=== PATIENT | male | born 1965 | race Caucasian/White ===

== ENCOUNTER → 2021-08-18 | Day surgery (SDC) | payer OTHER ==
[~2021-08-18] MED LIST: CARAFATE 1 GM TA1 G1 PO; DEXILANT60 MG PO; FENTANYL1 EAC1 TRANSDERM; FLOMAX0.4 MG PO; NARCAN4 MG NARES; OXYCODONE HCL E15 MG PO; POTASSIUM CHLO15 MEQ PO; PROTONIX40 M2 PO; REGLAN 10 MG TA10 MG PO; WELLBUTRIN XL300 MG PO; XANAX 0.5 MG0.5 MG PO
--- NOTE | ~2021-08-18 | PROC ---
[address] [address] PROCEDURE REPORT Name: OLEG GARCIA Room: [facility]#: [id number] Admission: 08/18/21 Attend Phys: Estevan Milan DO Discharge: Date of : 69 Report #: [id number] THIS REPORT FOR: cc: Yoan Espinal Simon FNP [facility],Medical Records Staff ~ For GI report, please see the Provation report in [employer] content. By: [id number] Records Staff MARILIN /JACK
== END | disposition home or self-care (01) ==
LOC: M.SUR 08:54
PROVIDERS: ATTEND Internal Medicine Gastroenterology
DX: R13.14 Dysphagia, pharyngoesophageal phase (principal); K91.89 Other postprocedural complications and disorders of digestive system; K21.9 Gastro-esophageal reflux disease without esophagitis; F32.9 Major depressive disorder, single episode, unspecified; F41.9 Anxiety disorder, unspecified; Z98.890 Other specified postprocedural states; Z85.01 Personal history of malignant neoplasm of esophagus; Z20.822 Contact with and (suspected) exposure to COVID-19; Z87.891 Personal history of nicotine dependence; Z87.442 Personal history of urinary calculi; Z79.899 Other long term (current) drug therapy; Z88.8 Allergy status to other drugs, medicaments and biological substances